=== PATIENT | female | born 1965 | race Caucasian/White ===

== ENCOUNTER → 2024-06-24 14:39 | Outpatient (REF) | payer OTHER, SELFPAY | LOC: HWWDC 14:39 | PROVIDERS: ATTENDING PHYSICIAN Nurse Practitioner Primary Care; FAMILY PHYSICIAN Internal Medicine | DX: Z12.31 Encounter for screening mammogram for malignant neoplasm of breast (principal) | CPT/HCPCS: 77063; 77067 ==